=== PATIENT | male | born 1970 | race Caucasian/White ===

== ENCOUNTER 2020-07-01 09:50 | Emergency (ER) | payer MEDICAID ==
[~2020-07-01] VITALS: Ht 188 cm; Wt 185.0 kg
--- OUTSIDE RECORDS SUMMARY | 2020-07-01 09:52 | XMS ---
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 Shy has no Care Guidelines for this patient. Taisha VISIT COUNT (12 MO.) [address] TOTAL 3 NOTE: Visits indicate total known visits. ED/C VISIT TRACKING (12 MO.) [facility] COMPLAINT: - SKIN PROBLEM 06/30/2020 16:39 [facility] [place] TYPE: Emergency COMPLAINT: - RASH 05/03/2020 13:56 [facility] TYPE: Emergency COMPLAINT: - CHEST PAIN DIAGNOSES: 0. Chest pain, unspecified 2. Nicotine dependence, cigarettes, uncomplicated 3. Personal history of other venous thrombosis and embolism 4. Psoriasis, unspecified 5. Encounter for observation for suspected exposure to other biological agents ruled out INPATIENT VISIT TRACKING (12 MO.) No inpatient visits to display in this time frame [email or web address]
[2020-07-01] MEDS ORDERED: MUPIROCIN22 GM TOP (10:41)
[2020-07-01] MEDS ORDERED: CEPHALEXIN500 M1 PO (10:41)
== END 2020-07-01 10:50 | disposition home or self-care (01) ==
LOC: ED 09:50
DX: L01.00 Impetigo, unspecified (principal); F17.200 Nicotine dependence, unspecified, uncomplicated
CPT/HCPCS: 99282

== ENCOUNTER 2020-07-23 10:57 | Emergency (ER) | payer OTHER ==
[~2020-07-23] VITALS: Ht 188 cm; Wt 86.2 kg
[~2020-07-23 10:57] MED LIST: CEPHALEXIN500 M1 PO; MUPIROCIN22 GM TOP
--- OUTSIDE RECORDS SUMMARY | 2020-07-23 11:00 | XMS ---
PreManage Notification: CORNELIUS BOWMAN [employer] Events 1 event(s) in the past 18 months Most recent security events: Elopement at [facility] 06/30/2020 16:39 - Other Details: PATIENT LWBS. CRITERIA MET - [facility] - 2 Visits in 30 Days CARE PROVIDERS There are no care providers on record at this time. Shy has no Care Guidelines for this patient. E.D. VISIT COUNT (12 MO.) 1 [facility] 3 [facility]. TOTAL 4 NOTE: Visits indicate total known visits. ED/UCC VISIT TRACKING (12 MO.) 07/23/2020 10:58 [facility] [place] TYPE: Emergency COMPLAINT: - RASH, TOOTH PAIN 07/01/2020 09:50 [facility] [place] TYPE: Emergency COMPLAINT: - SKIN PROBLEM DIAGNOSES: - Nicotine dependence, unspecified, uncomplicated - Impetigo, unspecified - Rash and other nonspecific skin eruption 06/30/2020 16:39 [facility] [place] TYPE: Emergency COMPLAINT: - RASH 05/03/2020 13:56 [facility] TYPE: Emergency COMPLAINT: - CHEST PAIN DIAGNOSES: 0. Chest pain, unspecified 2. Nicotine dependence, cigarettes, uncomplicated 3. Personal history of other venous thrombosis and embolism 4. Psoriasis, unspecified 5. Encounter for observation for suspected exposure to other biological agents ruled out INPATIENT VISIT TRACKING (12 MO.) No inpatient visits to display in this time frame [email or web address]
[2020-07-23] MEDS ORDERED: TRIAMCINOLONE A15 G3 TOP (11:45)
[2020-07-23] MEDS ORDERED: NAPROSYN500 MG PO (11:45)
[2020-07-23] MEDS ORDERED: CLEOCIN HCL300 MG PO ×2 (11:45→14:27)
== END 2020-07-23 14:45 | disposition home or self-care (01) ==
LOC: ED 10:57
DX: K08.89 Other specified disorders of teeth and supporting structures (principal); R21 Rash and other nonspecific skin eruption
CPT/HCPCS: 99282